=== PATIENT | male | born 1955 | race Hispanic/Latino ===

== ENCOUNTER 2018-06-11 17:41 | Emergency (ER) | payer OTHER ==
[2018-06-11 17:42] VITALS: BMI 34.2
--- NOTE | 2018-06-11 20:30 | C.PDOC ---
History Of Present Illness 62 year old male present to ED with complaint of obstructed suprapubic Wing catheter in place for neurogenic bladder. Catheter is usually exchanged every 6 weeks, but he missed his appointment 3 weeks ago.Patient admits to experiencing suprapubic discomfort. Patient denies fever. Time Seen by Provider: 06/11/18 18:15 Chief Complaint (Nursing): Male Genitourinary History Per: Patient History/Exam Limitations: no limitations Onset/Duration Of Symptoms: Hrs Current Symptoms Are (Timing): Still Present Associated Symptoms: Other (suprapubic discomfort). denies: Fever, Chills Past Medical History Reviewed: Historical Data, Nursing Documentation, Vital Signs Vital Signs: Last Vital Signs Temp 98.2 F 06/11/18 17:58 Pulse 88 06/11/18 17:58 Resp 18 06/11/18 17:58 BP 174/87 H 06/11/18 17:58 Pulse Ox 97 06/11/18 17:58 - Medical History PMH: Asthma, CAD, COPD, Diabetes, HTN, Hypercholesterolemia, Hypothyroidism, Kidney Stones, Peripheral Edema, Pneumonia (2015), Chronic Kidney Disease, Rheumatoid Arthritis Denies: HIV Surgical History: Appendectomy, Coronary Stent (1996 2006), Endoscopy, Hernia Repair - [facility] Procedures DILATION OF URETHRA, ENDO (05/30/16) DRAINAGE OF BLADDER WITH DRAINAGE DEVICE, PERC APPROACH (05/30/16) DRAINAGE OF BLADDER WITH DRAINAGE DEVICE, VIA OPENING (05/30/16) FLUOROSCOPY OF BLADDER AND URETHRA (05/30/16) INSERTION OF INFUSION DEV INTO SUP VENA CAVA, PERC APPROACH (03/30/16) ULTRASONOGRAPHY OF SUPERIOR VENA CAVA, GUIDANCE (03/30/16) Family History: States: Unknown Family Hx - Social History Hx Tobacco Use: No (Quit 20 years ago) Hx Alcohol Use: No Hx Substance Use: No - Immunization History Hx Tetanus Toxoid Vaccination: No Hx Influenza Vaccination: Yes (Jan 2016) Hx Pneumococcal Vaccination: No Review Of Systems Constitutional: Negative for: Fever, Chills, Weakness Genitourinary: Positive for: Other (suprapubic discomfort). Negative for: Dysuria, Penile Pain Neurological: Negative for: Weakness, Numbness, Dizziness Physical Exam - Physical Exam Appears: Well, Non-toxic, No Acute Distress, Other (appears older than he is) Skin: Normal Color, Warm, Dry Head: Atraumatic, Normacephalic Neck: Normal ROM, Supple Chest: Symmetrical, No Deformity Respiratory: No Accessory Muscle Use Gastrointestinal/Abdominal: Soft, No Tenderness (suprapubic), Other (scant blood and urine in catheter) Extremity: Capillary Refill (<2 seconds) Extremity: Bilateral: Atraumatic, Normal Color And Temperature Neurological/Psych: Oriented x3, Normal Speech, Normal Cognition ED Course And Treatment O2 Sat by Pulse Oximetry: 97 (RA) Progress Note: 1849: Discussed with Dr.Elliot Luevano about replacing catheter with 22 latvian. Medical Decision Making Medical Decision Making: procedure old suprapubic catheter baloon deflated and cath removed Clean suprapubic 22 FR wing cath inserted in suprapubic stoma without difficulty inflated 10 cc leg bag attached by nursing. well tolerated no complications. Disposition Doctor Will See Patient In The: Office Counseled Patient/Family Regarding: Studies Performed, Diagnosis - Disposition Referrals: Dheeraj Brooks MD [Staff Provider] - Disposition: HOME/ ROUTINE Disposition Time: 20:00 Condition: GOOD Additional Instructions: Urinalysis with 184 WBC's Take Bactrim DS (antibiotic) twice a day to complete 7 days (started 06/11/18) Prescriptions: Sulfamethoxazole/Trimethoprim [Bactrim DS 800 mg-160 mg] 1 tab PO BID #13 tab Instructions: Urinary Tract Infections in Adults, How to Care for Your Suprapubic Urinary Catheter Forms: [facility] (Danish) - Clinical Impression Clinical Impression: Suprapubic catheter dysfunction - Scribe Statement The provider has reviewed the documentation as recorded by the Scribe (Brit Metz) All medical record entries made by the Scribe were at my direction and personally dictated by me. I have reviewed the chart and agree that the record accurately reflects my personal performance of the history, physical exam, medical decision making, and the department course for this patient. I have also personally directed, reviewed, and agree with the discharge instructions and disposition.
[2018-06-11 21:19] LABS: URINE BACTERIA MANY (<OCC); URINE BILIRUBIN NEGATIVE (NEGATIVE); URINE BLOOD 3+ (NEGATIVE); URINE CLARITY Hazy (Clear); URINE COLOR Yellow (YELLOW); URINE GLUCOSE (UA) NORMAL (Normal); URINE LEUKOCYTE ESTERASE 3+ Leu/uL (Negative); URINE PROTEIN 2+ mg/dL (NEGATIVE); URINE UROBILINOGEN NORMAL mg/dL (0.2-1.0); WBC CLUMPS FEW /hpf
[2018-06-11 21:31] VITALS: BP 137/73; PULSE 90; RESP 14; TEMP 98.1
[2018-06-11] MEDS ORDERED: Tmp-Smz 800 mg-160 mg DS Tab PO STA (21:36)
[2018-06-11] MEDS ORDERED: Tmp-Smz 800 mg-160 mg DS Tab ONE (21:40)
[2018-06-12 00:27] VITALS: O2SAT 97
== END 2018-06-11 21:46 | disposition home or self-care (01) ==
LOC: C.ER 17:41
DX: T83.090A Other mechanical complication of cystostomy catheter, initial encounter (principal); Y84.9 Medical procedure, unspecified as the cause of abnormal reaction of the patient, or of later complication, without mention of misadventure at the time of the procedure